=== PATIENT | male | born 1990 | race Caucasian/White ===

== ENCOUNTER 2018-04-10 13:42 | Inpatient (IN) | payer MEDICAID ==
[2018-04-10] MEDS ORDERED: Propofol 200 MG/20 ML SDV IVPUSH ONE ×3 (13:50→13:54)
[2018-04-10] MEDS ORDERED: Sodium Chloride 0.9% 10 ML Syringe FLUSH ONE (13:53)
[2018-04-10] MEDS ORDERED: Iopamidol 612 MG/ML 150 ML Bottle IVPUSH ONE (13:53)
[2018-04-10] MEDS ORDERED: Etomidate 2 MG/ML 20 ML SDV IVPUSH ONE (13:59)
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
[2018-04-10] MEDS ORDERED: Midazolam 50 MG in Sodium Chloride 0.9% 40 ML IV SCH (14:14)
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
--- NOTE | 2018-04-10 15:28 | CT ---
Chest CT Technique: Multiple axial sections through the chest were obtained. Intravenous contrast was utilized. Comparison: No prior chest imaging. Findings: Small right sided pneumothorax is seen with chest tube in place. Tip of chest tube terminates within the major fissure. Small amount of pleural fluid is noted within the right chest. Subcutaneous air is seen within the right chest laterally and posteriorly. Atelectasis is seen posteriorly on both sides worse within the lung bases. No discrete rib abnormality is seen on bone window settings. Vertebral body heights are maintained. Mediastinum and hilar regions are within normal limits. No pericardial thickening is seen. Impression: 1. Small right sided pneumothorax remains with chest tube in place. Chest tube terminates within the major fissure. Small amount of pleural fluid is seen within the right chest. 2. Subcutaneous air within the right lateral and posterior chest. 3. Endotracheal tube and nasogastric tube which are satisfactory in position. Diagnostic code #3 CT abdomen and pelvis Technique: Multiple axial sections were obtained from above the dome of the diaphragm inferiorly through the pubic symphysis. Intravenous contrast was utilized. No oral contrast has been given. Comparison: No prior abdominal CT. Findings: Liver and spleen show no focal abnormality. Adrenal glands appear within normal limits. Kidneys show symmetric contrast enhancement and appear unremarkable. Subcutaneous air is noted along the right posterior back. Aorta appears normal. No retroperitoneal adenopathy or mesenteric abnormalities are seen. No pelvic mass or adenopathy is noted. No free fluid or inflammatory change is seen. Appendix is seen which is normal. Bone window settings were reviewed which appears within normal limits. Impression: 1. Subcutaneous air within the right posterior back. 2. CT study of the abdomen and pelvis is otherwise unremarkable. Diagnostic code #2
[2018-04-10] MEDS ORDERED: Sodium Chloride 0.9% 1,000 ML IV SCH (15:30)
--- NOTE | 2018-04-10 15:54 | PCM.OPNOTE ---
- General Post-Op/Procedure Note Date of Surgery/Procedure: 04/10/18 Operative Procedure(s): Right tube thoracostomy Findings: Hemopneumothorax with subcutaneous emphysema Pre Op Diagnosis: Right-sided penetrating traumatic pneumothorax Post-Op Diagnosis: Same Anesthesia Technique: General ET Tube, Local Primary Surgeon: Zach Mathews Pathology: None EBL in mLs: 2 Complications: None Condition: Good Free Text/Narrative:: The patient was previously intubated per the ATLS protocol. I prepped the right chest and draped it sterilely. The fourth intercostal space on the right side at the anterior axillary line was identified. 10 mL of local analgesia was given. A 15 blade was used to make incision in the skin and subcutaneous tissues and intercostal space. I spread the intercostal musculature and there was a small moser of air. I then inserted a 32 [place]bourgish chest tube which drained about 100 mL of red blood. The patient's hemodynamics improved slightly. I secured the tube in place with an 0 silk suture. Gauze and tape were used for the dressing. The tube was placed on continuous suction at 20 cm.
[2018-04-10] MEDS ORDERED: Morphine 2 MG/ML Syringe ONE (16:04)
[2018-04-10] MEDS: Morphine 2 MG/ML Syringe IVPUSH PRN ×5 (16:06→23:35)
--- NOTE | 2018-04-10 17:14 | CR ---
Chest: Portable view of the chest was obtained. Comparison: No previous study. Moderately large right-sided pneumothorax is seen. Fracture is identified within the mid clavicle which appears to be old with nonunion. No left-sided pneumothorax is seen. Heart size and mediastinum are within normal limits for portable technique. No acute parenchymal finding is seen within either lung. Impression: 1. Moderately large right-sided pneumothorax. 2. 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 Diagnostic code #3
[2018-04-11] MEDS: Morphine 2 MG/ML Syringe IVPUSH PRN ×5 (03:24→21:44)
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
--- NOTE | 2018-04-11 08:18 | CR ---
Chest: Portable view of the chest is obtained. Comparison: Prior chest CT of 04/10/18 and chest x-ray of 04/10/18. Previous right-sided pneumothorax not visualized on current chest x-ray. Right-sided chest tube is seen. Small amount of subcutaneous air remains within the right chest wall and base of the right neck. Slight parenchymal density is noted within the upper right lung abutting the minor fissure compatible with atelectasis. Left lung is clear. Heart size and mediastinum are normal. Endotracheal tube and nasogastric tube have been removed. Impression: 1. Parenchymal density within the upper right chest which is most likely due to atelectasis. 2. Removal of endotracheal tube and nasogastric tube from prior CT study. 3. Right-sided chest tube remains as well as right-sided subcutaneous air within the chest and base of the neck. 4. No pneumothorax is seen on current study. Diagnostic code #3
[2018-04-11] MEDS: Sodium Chloride 0.9% 10 ML Syringe FLUSH PRN ×2 (21:49→21:50)
[2018-04-12] MEDS: Sodium Chloride 0.9% 10 ML Syringe FLUSH PRN ×2 (08:27→21:16)
[2018-04-12] MEDS: Morphine 2 MG/ML Syringe IVPUSH PRN ×5 (08:27→21:16)
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
--- NOTE | 2018-04-12 09:26 | CR ---
Chest: Two views of the chest were obtained. Comparison: Prior chest x-ray of 04/11/18. Improved aeration of the right chest is seen from previous exam. Right-sided chest tube remains in place. Subcutaneous air is noted within the right chest wall. No pneumothorax is seen. Heart size and mediastinum are normal. Bony structures are grossly intact. Impression: 1. Better aeration of the right lung from prior exam. 2. No pneumothorax is seen with right-sided chest tube remaining in place. Continuing subcutaneous air noted within the right chest wall. Diagnostic code #2
[2018-04-12] MEDS ORDERED: Ibuprofen 400 MG Tab PO PRN (09:57)
[2018-04-12] MEDS: Nicotine 7 MG/24 Hr Patch TRDERM SCH (10:36)
[2018-04-12] MEDS ORDERED: Magnesium Hydroxide 400 MG/5 ML Susp 30 ML Cup PO ONE (17:04)
[2018-04-13] MEDS: Morphine 2 MG/ML Syringe IVPUSH PRN (04:21)
[2018-04-13 08:40] VITALS: BP 110/65
[2018-04-13] MEDS: Nicotine 7 MG/24 Hr Patch TRDERM SCH (08:43)
[2018-04-13] MEDS ORDERED: Morphine 2 MG/ML Syringe IM ONE (08:50)
[2018-04-13] MEDS ORDERED: Pneumococcal Polyvalent-23 Vaccine 0.5 ML SDV IM ONE (09:13)
--- NOTE | 2018-04-13 09:16 | CR ---
Chest: Two views of the chest were obtained. Comparison: Prior chest x-ray 04/12/18. Stable appearing right-sided chest tube is seen. Small apical pneumothorax is seen which is an interval change from recent chest x-ray. Subcutaneous air within the right chest wall remains. Lungs are clear. Impression: 1. Small apical pneumothorax as a change from previous chest x-ray. 2. Right-sided chest tube and other incidental findings. 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 Bisi Mccullough's nurse on 04/13/18 at 0906.
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
--- NOTE | 2018-04-13 11:31 | CR ---
Left hand: Two views of the left hand were obtained. Comparison: No previous study. Joint spaces are maintained. Equivocal sclerotic line within the distal fourth metacarpal. Difficult to completely exclude a fracture. No additional bony abnormality is appreciated. Impression: 1. Limited two-view study. 2. Equivocal fracture within the distal fourth metacarpal. This may also be artifact. Four-view study recommended if patient's condition permits. Diagnostic code #3
--- NOTE | 2018-04-13 12:44 | CR ---
Left hand: Four views of the left hand were obtained. Study felt to confirm a nondisplaced and slightly impacted fracture within the distal head of the fourth metacarpal. Slight deformity of the fifth metacarpal is seen compatible with old healed fracture. No additional abnormality is seen. Impression: 1. Slightly impacted but nondisplaced fracture within the distal fourth metacarpal head. 2. Old healed fracture within the distal fifth metacarpal. Diagnostic code #3
== END 2018-04-13 12:30 | disposition home or self-care (01) | DRG 604 ==
LOC: JD.ED 13:42 → JD.ICU 15:00
PROVIDERS: ADMIT Surgery; ATTEND Surgery
DX: S31.119A Laceration without foreign body of abdominal wall, unspecified quadrant without penetration into peritoneal cavity, initial encounter (principal); S27.2XXA Traumatic hemopneumothorax, initial encounter; X99.1XXA Assault by knife, initial encounter; F15.10 Other stimulant abuse, uncomplicated
CPT/HCPCS: 31500; 32551; 36415; 51702; 71045; 71045-26; 71046; 71046-26; 71260; 71260-26; 73120-26-LT; 73120-LT; 73130-26-LT; 73130-LT; 74177; 74177-26; 80053; 80306; 85025; 85610; 86850; 86900; 86901; 86922; 90732; 94002; 96365; 96374; 96375; 99291; A9270-GY; J2250; J2270; J2704; J3490; J7040; J7050; Q9967

== ENCOUNTER 2020-04-23 10:29 | Emergency (ER) | payer SELFPAY ==
[2020-04-23 10:45] VITALS: BP 133/98; PULSE 96
[2020-04-23] MEDS ORDERED: Lidocaine 1% 10 ML MDV INJECT ONE (11:17)
[2020-04-23] MEDS ORDERED: Lidocaine/EPINEPHrine/Tetracaine Soln 1 ML TOP ONE (11:17)
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
== END 2020-04-23 12:41 | disposition home or self-care (01) ==
LOC: JD.ED 10:29
DX: K04.7 Periapical abscess without sinus (principal); K02.9 Dental caries, unspecified; F17.210 Nicotine dependence, cigarettes, uncomplicated
CPT/HCPCS: 41800; 99282; J2001; 99283

== ENCOUNTER 2020-07-08 02:19 | Emergency (ER) | payer SELFPAY ==
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
[2020-07-08 02:34] VITALS: BP 135/79; PULSE 108
[2020-07-08] MEDS ORDERED: Doxycycline 100 MG Cap PO ONE (02:38)
[2020-07-08] MEDS ORDERED: Mupirocin Oint 22 GM Tube TOP ONE (02:39)
--- NOTE | 2020-08-11 09:02 | CR ---
PROCEDURE INFORMATION: Exam: XR Left Elbow Exam date and time: 07/08/2020 2:32 AM Age: 30 years old Clinical indication: Injury or trauma; Fall; Laceration; Elbow; Left TECHNIQUE: Imaging protocol: XR Left elbow. Views: 3 or more views. COMPARISON: No relevant prior studies available. FINDINGS: Bones/joints: Normal. Soft tissues: Normal. IMPRESSION: No acute findings. Thank you for allowing us to participate in the care of your patient. Dictated and Authenticated by: Deandre Zhao MD 08/04/2020 9:34 PM Central Time ([place] & [place]) [place]
== END 2020-07-08 03:11 | disposition home or self-care (01) ==
LOC: JD.ED 02:19
DX: S51.002D Unspecified open wound of left elbow, subsequent encounter (principal); L08.9 Local infection of the skin and subcutaneous tissue, unspecified; F15.120 Other stimulant abuse with intoxication, uncomplicated; Y08.09XD Assault by strike by other specified type of sport equipment, subsequent encounter
CPT/HCPCS: 73080; 99283; A9270

== ENCOUNTER 2022-09-30 11:31 | Emergency (ER) | payer SELFPAY ==
[2022-09-30 11:42] VITALS: BP 115/72; PULSE 80
[2022-09-30] MEDS ORDERED: Lidocaine 1% 10 ML MDV INJECT ONE (11:54)
== END 2022-09-30 12:45 | disposition home or self-care (01) ==
LOC: JD.ED 11:31
DX: S51.012A Laceration without foreign body of left elbow, initial encounter (principal); F17.210 Nicotine dependence, cigarettes, uncomplicated; W26.8XXA Contact with other sharp object(s), not elsewhere classified, initial encounter; Y92.009 Unspecified place in unspecified non-institutional (private) residence as the place of occurrence of the external cause
CPT/HCPCS: 12002; 99282

== ENCOUNTER 2024-04-16 14:52 | Emergency (ER) | payer MEDICAID ==
[2024-04-16] MEDS: Iopamidol 755 Mg/ML 100 ML Bottle IVPUSH ONE (16:13)
[2024-04-16] MEDS: Sodium Chloride 0.9% 10 ML Syringe FLUSH ONE (16:13)
[2024-04-16 16:48] LABS: BASOPHILS ABSOLUTE AUTO 0.1 K/mm3 (0.0-0.2); BASOPHILS PERCENT AUTO 0.6 % (0.0-1.0); EOSINOPHILS ABSOLUTE AUTO 0.1 K/mm3 (0.0-0.4); EOSINOPHILS PERCENT AUTO 1.2 % (0.0-6.0); HEMATOCRIT 40.6 % (42.0-52.0); HEMOGLOBIN 13.8 gm/dl (14.0-18.0); IMMATURE GRAN ABSOLUTE AUTO 0.03 K/mm3 (0.00-0.05); IMMATURE GRAN PERCENT AUTO 0.3 % (0.0-0.4); LYMPHOCYTES ABSOLUTE AUTO 1.9 K/mm3 (1.0-4.8); LYMPHOCYTES PERCENT AUTO 19.8 % (24.0-44.0); MEAN CORPUSCULAR HEMOGLOBIN 30.1 pg (28.0-32.0); MEAN CORPUSCULAR VOLUME 88.5 fl (83.0-99.0); MEAN PLATELET VOLUME 9.8 fl (9.4-12.4); MONOCYTES PERCENT AUTO 10.2 % (0.0-8.0); NEUTROPHILS ABSOLUTE AUTO 6.5 K/mm3 (1.8-7.7); NEUTROPHILS PERCENT AUTO 67.9 % (41.0-71.0); PLATELET COUNT,PLT 273 K/mm3 (150-400); RED BLOOD CELL COUNT 4.59 M/mm3 (4.52-5.90); WHITE BLOOD CELL COUNT,WBC 9.61 K/mm3 (3.9-11.3)
[2024-04-16] MEDS: Sulfamethoxazole/Trimethoprim 800-160 MG Tab PO ONE (17:07)
[2024-04-16] MEDS: Lactated Ringers 1,000 ML IV ONE (17:08)
[2024-04-16 17:31] LABS: A/G RATIO 1.1 (1-2); ALBUMIN 3.6 g/dl (3.4-5.0); ANION GAP 11.8 (5-15); BILIRUBIN TOTAL 0.7 mg/dL (0.2-1.0); C-REACTIVE PROTEIN 0.75 mg/dL (<0.30); CALCIUM 8.7 mg/dL (8.5-10.1); EST CRCL DRUG DOSING (CG) 105.07 mL/min; POTASSIUM,K 3.8 mEq/L (3.5-5.1)
[2024-04-16 19:11] VITALS: BP 130/66; PULSE 68
== END 2024-04-16 19:05 | disposition home or self-care (01) ==
LOC: JD.ED 14:52
DX: L03.114 Cellulitis of left upper limb (principal)
CPT/HCPCS: 36415; 73201; 80053; 83605; 85025; 86140; 87040; 96360; 99284; A9270; J3490; J7120; Q9967

== ENCOUNTER 2024-04-28 22:02 | Emergency (ER) | payer MEDICAID ==
[2024-04-28] MEDS: Famotidine 20 MG Tab PO ONE (22:36)
[2024-04-28] MEDS: Loratadine 10 MG Tab PO ONE (22:36)
[2024-04-28 22:47] VITALS: BP 129/89; PULSE 99
== END 2024-04-28 22:46 | disposition home or self-care (01) ==
LOC: JD.ED 22:02
DX: L50.0 Allergic urticaria (principal); T36.8X5A Adverse effect of other systemic antibiotics, initial encounter; F17.210 Nicotine dependence, cigarettes, uncomplicated; Z79.899 Other long term (current) drug therapy
CPT/HCPCS: 99282; A9270; 99283

== ENCOUNTER 2024-05-12 20:14 | Inpatient (IN) | payer MEDICAID ==
[2024-05-12] MEDS: Lactated Ringers 1,000 ML IV ONE ×2 (20:20→21:12)
[2024-05-12] MEDS: fentaNYL 100 MCG/2 ML SDV IVPUSH ONE ×2 (20:22→20:26)
[2024-05-12 20:25] LABS: BASOPHILS ABSOLUTE AUTO 0.1 K/mm3 (0.0-0.2); BASOPHILS PERCENT AUTO 1.1 % (0.0-1.0); EOSINOPHILS ABSOLUTE AUTO 0.1 K/mm3 (0.0-0.4); EOSINOPHILS PERCENT AUTO 1.4 % (0.0-6.0); HEMOGLOBIN 13.8 gm/dl (14.0-18.0); IMMATURE GRAN ABSOLUTE AUTO 0.01 K/mm3 (0.00-0.05); IMMATURE GRAN PERCENT AUTO 0.1 % (0.0-0.4); LYMPHOCYTES ABSOLUTE AUTO 3.7 K/mm3 (1.0-4.8); LYMPHOCYTES PERCENT AUTO 46.6 % (24.0-44.0); MEAN CORPUSCULAR HEMOGLOBIN 30.7 pg (28.0-32.0); MEAN CORPUSCULAR HGB CONC 33.7 g/dl (32.0-36.0); MEAN CORPUSCULAR VOLUME 91.1 fl (83.0-99.0); MEAN PLATELET VOLUME 9.3 fl (9.4-12.4); MONOCYTES ABSOLUTE AUTO 0.8 K/mm3 (0.0-0.8); MONOCYTES PERCENT AUTO 9.7 % (0.0-8.0); NEUTROPHILS ABSOLUTE AUTO 3.3 K/mm3 (1.8-7.7); NEUTROPHILS PERCENT AUTO 41.1 % (41.0-71.0); PLATELET COUNT,PLT 361 K/mm3 (150-400); WHITE BLOOD CELL COUNT,WBC 7.94 K/mm3 (3.9-11.3)
[2024-05-12 21:02] LABS: INR 1.08; PROTHROMBIN TIME 11.4 SECONDS (9.7-12.0)
[2024-05-12 21:09] LABS: A/G RATIO 1.3 (1-2); ALANINE AMINOTRANSFERASE,ALT 27 U/L (16-63); ALBUMIN 3.5 g/dl (3.4-5.0); ALKALINE PHOSPHATASE 45 U/L (46-116); ANION GAP 16.9 (5-15); ASPARTATE AMNIOTRANSFERASE,AST 25 U/L (15-37); BILIRUBIN TOTAL 0.3 mg/dL (0.2-1.0); BLOOD UREA NITROGEN,BUN 18 mg/dL (7-18); BUN/CREATININE RATIO 13.8 (14-18); CALCIUM 8.6 mg/dL (8.5-10.1); CARBON DIOXIDE,CO2 24 mEq/L (21-32); CHLORIDE,CL 104 mEq/L (98-107); CREATININE 1.3 mg/dL (0.7-1.3); ESTIMATED GFR 74 mL/min (>60); GLUCOSE RANDOM 125 mg/dL (70-99); LIPASE 37 U/L (16-77); POTASSIUM,K 3.9 mEq/L (3.5-5.1); PROTEIN TOTAL,TP 6.2 g/dl (6.4-8.2); SODIUM,NA 141 mEq/L (136-145)
[2024-05-12] MEDS: Lactated Ringers 1,000 ML IV SCH (21:09)
[2024-05-12 21:10] LABS: LACTIC ACID 3.6 mmol/L (0.4-2.0)
[2024-05-12 21:11] LABS: TROPONIN I HIGH SENSITIVITY < 4 pg/mL (<=76)
[2024-05-12] MEDS: Iopamidol 612 MG/ML 100 ML Bottle IVPUSH ONE (21:49)
[2024-05-12] MEDS: Iopamidol 612 MG/ML 30 ML SDV IVPUSH ONE (21:49)
[2024-05-12] MEDS: Sodium Chloride 0.9% 10 ML Syringe FLUSH PRN (21:49)
[2024-05-12] MEDS: Ondansetron 4 MG Tab.DIS PO PRN (21:50)
[2024-05-12] MEDS: HYDROmorphone 0.5 MG/0.5 ML Syringe IVPUSH PRN (21:50)
[2024-05-12] MEDS: oxyCODONE 5 MG Tab PO PRN (23:57)
[2024-05-12] MEDS: Acetaminophen 325 MG Tab PO PRN (23:58)
[2024-05-13] MEDS: Docusate Sodium 100 MG Cap PO SCH
[2024-05-13 05:30] LABS: HEMATOCRIT 33.2 % (42.0-52.0); MEAN CORPUSCULAR HEMOGLOBIN 30.7 pg (28.0-32.0); MEAN CORPUSCULAR HGB CONC 33.4 g/dl (32.0-36.0); MEAN CORPUSCULAR VOLUME 91.7 fl (83.0-99.0); MEAN PLATELET VOLUME 9.4 fl (9.4-12.4); RED BLOOD CELL COUNT 3.62 M/mm3 (4.52-5.90); WHITE BLOOD CELL COUNT,WBC 9.93 K/mm3 (3.9-11.3)
[2024-05-13 05:45] LABS: ANION GAP 9.7 (5-15); CALCIUM 8.2 mg/dL (8.5-10.1); EST CRCL DRUG DOSING (CG) 103.88 mL/min; POTASSIUM,K 3.7 mEq/L (3.5-5.1)
[2024-05-13 05:47] LABS: HEMOGLOBIN 11.1 gm/dl (14.0-18.0); PLATELET COUNT,PLT 232 K/mm3 (150-400)
[2024-05-13] MEDS ORDERED: Sodium Chloride 0.9% 10 ML Syringe FLUSH PRN (07:12)
[2024-05-13 07:47] LABS: APPEARANCE,URINE CLOUDY (Clear); BILIRUBIN,URINE NEGATIVE (Negative); COLOR,URINE YELLOW (Yellow); GLUCOSE,URINE NEGATIVE (Negative); KETONES,URINE NEGATIVE (Negative); LEUKOCYTE ESTERASE,URINE NEGATIVE (Negative); NITRITE,URINE NEGATIVE (Negative); OCCULT BLOOD,URINE NEGATIVE (Negative); PROTEIN,URINE TRACE (Negative); UROBILINOGEN,URINE 0.2 (0.2-1.0)
[2024-05-13 08:01] LABS: AMORPHOUS SEDIMENT,URINE FEW /hpf (NOT SEEN); BACTERIA,URINE FEW /hpf (FEW); MUCUS,URINE FEW /hpf (FEW); RBC,URINE 0-5 /hpf (0-5); SQUAMOUS EPITHELIAL CELLS,UR 0-5 /hpf (0-5); WBC,URINE 0-5 /hpf (0-5)
[2024-05-13 08:12] LABS: BARBITURATE SCREEN,URINE NEGATIVE (CUTOFF=200); BENZODIAZEPINES SCREEN,URINE NEGATIVE (CUTOFF=150); BUPRENORPHINE SCREEN,URINE NEGATIVE (CUTOFF=10); METHADONE SCREEN, URINE NEGATIVE (CUT0FF=200); METHAMPHETAMINES SCREEN, URINE PRESUMPTIVE POSITIVE (CUTOFF=500); OXYCODONE SCREEN,URINE PRESUMPTIVE POSITIVE (CUT0FF=100); THC SCREEN,URINE 20 NG/ML PRESUMPTIVE POSITIVE (CUTOFF=50)
[2024-05-13] MEDS: Lidocaine 1% 20 ML MDV ONE (08:52)
[2024-05-13 08:56] LABS: AMPHETAMINES SCREEN, URINE PRESUMPTIVE POSITIVE (CUTOFF=500)
[2024-05-13] MEDS ORDERED: Naloxone 0.4 MG/ML SDV IVPUSH PRN (09:26)
[2024-05-13] MEDS: HYDROmorphone 0.5 MG/0.5 ML Syringe IVPUSH PRN (09:36)
[2024-05-13] MEDS: fentaNYL 100 MCG/2 ML SDV ONE (17:05)
[2024-05-13] MEDS: Lidocaine 1% 10 ML MDV ONE (17:05)
[2024-05-14 14:20] VITALS: BP 119/62; PULSE 65
[2024-05-14] MEDS ORDERED: oxyCODONE 5 MG Tab PO PRN (15:30)
== END 2024-05-14 14:50 | disposition home or self-care (01) | DRG 200 ==
LOC: JD.ED 20:14 → JD.MS 20:45
PROVIDERS: ADMIT Surgery; ATTEND Surgery
PROC: 0W9930Z Drainage of Right Pleural Cavity with Drainage Device, Percutaneous Approach (ICD-10-PCS; principal; 2024-05-12)
DX: S27.0XXA Traumatic pneumothorax, initial encounter (principal); S21.111A Laceration without foreign body of right front wall of thorax without penetration into thoracic cavity, initial encounter; Z88.0 Allergy status to penicillin; W45.8XXA Other foreign body or object entering through skin, initial encounter; Z87.81 Personal history of (healed) traumatic fracture
CPT/HCPCS: 32551; 36415; 71045; 71045-26; 71260; 71260-26; 72170; 72170-26; 74177; 74177-26; 80048; 80053; 80306; 80307; 81001; 83605; 83690; 83735; 84484; 85025; 85027; 85610; 85730; 86850; 86900; 86901; 93005; 93010; 96374; 99284; 99285-25; A9270-GY; J1170; J3010; J3490; J7120; Q9967

== ENCOUNTER 2024-06-17 01:44 | Emergency (ER) | payer MEDICAID ==
[2024-06-17 04:11] VITALS: BP 133/66; PULSE 78
== END 2024-06-17 03:49 | disposition home or self-care (01) ==
LOC: JD.ED 01:44
DX: R06.00 Dyspnea, unspecified (principal); Z88.1 Allergy status to other antibiotic agents
CPT/HCPCS: 71045; 71045-26; 99282; 99284-25